=== PATIENT | male | born 1955 | race Caucasian/White ===

== ENCOUNTER → 2023-12-30 09:49 | Outpatient (REF) | payer MEDICARE, BC, SELFPAY ==
[2023-12-30 12:23] LABS: % Basophils 1.3 % (0-2); % Eosinophils 4.2 % (0-6); % Immature Granulocytes 0.3 % (0-0.5); % Lymphocytes 39.9 % (20.5-51.1); % Monocytes 11.5 % (1.7-9.3); % Neutrophils 42.8 % (42.2-75.2); Absolute Basophils 0.1 10^3/uL (0-0.2); Absolute Eosinophils 0.3 10^3/uL (0-0.7); Absolute Lymphocytes 2.7 10^3/uL (1.2-3.4); Absolute Monocytes 0.8 10^3/uL (0.1-0.6); Absolute Neutrophils 2.9 10^3/uL (1.4-6.5); Hematocrit 37.5 % (39.0-52.0); Hemoglobin 12.7 g/dL (13.0-18.0); Mean Corp Hgb Conc. 33.9 g/dL (33.0-37.0); Mean Corpuscular Hgb 32.9 pg (27.0-31.0); Mean Corpuscular Volume 97.2 fL (80.0-94.0); Nucleated Red Blood Cells % 0 % (-); Platelet Count 190 10^3/uL (130-400); Red Blood Cell Count 3.86 10^6/uL (4.70-6.10); Red Cell Dist. Width 15.5 % (11.5-14.5); White Blood Cell Count 6.8 10^3/uL (4.8-10.8)
[2023-12-30 13:07] LABS: ALT (SGPT) 21 U/L (0-50); AST (SGOT) 30 U/L (17-59); Albumin 4.1 g/dl (3.5-5.0); Alkaline Phosphatase 68 U/L (38-126); Blood Urea Nitrogen 17 mg/dl (9-20); Calcium 9.6 mg/dl (8.4-10.2); Carbon Dioxide 32 mmol/L (22-30); Chloride 102 mmol/L (98-107); Glucose 86 mg/dl (70-99); HDL Cholesterol 85 mg/dl; LDL Cholesterol, Calculated 101 mg/dl; Potassium 4.7 mmol/L (3.5-5.1); Sodium 137 mmol/L (135-145); Total Bilirubin 0.7 mg/dl (0.2-1.3); Total Cholesterol 198 mg/dl (50-199); Total Protein 6.7 g/dl (6.3-8.2); Triglyceride 60 mg/dl (10-149); Very Low Density Lipoprotein 12 mg/dl (0-30); eGFR > 60.00
[2023-12-30 13:22] LABS: TSH Reflex To Free T4 0.87 uIU/ml (0.47-4.68)
[2023-12-30 13:58] LABS: Folate > 20.0 ng/ml (2.76-20); Vitamin B12 246 pg/ml (239-931)
== END ==
LOC: HWLAB 09:49
PROVIDERS: ATTENDING PHYSICIAN Family Medicine
DX: E03.9 Hypothyroidism, unspecified (principal); I10 Essential (primary) hypertension; R97.20 Elevated prostate specific antigen [PSA]; E53.8 Deficiency of other specified B group vitamins
CPT/HCPCS: 36415; 80053; 80061; 82607; 82746; 84443; 85025

== ENCOUNTER → 2024-01-15 13:41 | Outpatient (REF) | payer MEDICARE, BC, SELFPAY | LOC: HWRAD 13:41 | PROVIDERS: ATTENDING PHYSICIAN Family Medicine | DX: R91.1 Solitary pulmonary nodule (principal) | CPT/HCPCS: 71250 ==

== ENCOUNTER → 2024-03-08 13:02 | Outpatient (REF) | payer MEDICARE, BC, SELFPAY ==
[2024-03-08 16:28] LABS: TSH Reflex To Free T4 1.41 uIU/ml (0.47-4.68)
== END ==
LOC: HWLAB 13:02
PROVIDERS: ATTENDING PHYSICIAN Family Medicine
DX: E03.9 Hypothyroidism, unspecified (principal); E53.8 Deficiency of other specified B group vitamins
CPT/HCPCS: 36415; 84443

== ENCOUNTER → 2024-03-17 13:06 | Outpatient (REF) | payer MEDICARE, BC, SELFPAY ==
[2024-03-17 16:49] LABS: PSA, Total - Diagnostic 6.23 ng/ml (0.0-4.0)
== END ==
LOC: HWLAB 13:06
PROVIDERS: ATTENDING PHYSICIAN Urology; FAMILY PHYSICIAN Physician Assistant Medical
DX: R97.20 Elevated prostate specific antigen [PSA] (principal); Z80.42 Family history of malignant neoplasm of prostate
CPT/HCPCS: 36415; 84153

== ENCOUNTER → 2024-05-07 09:35 | Outpatient (REF) | payer MEDICARE, BC, SELFPAY ==
[2024-05-07 11:35] LABS: % Basophils 0.6 % (0-2); % Eosinophils 1.7 % (0-6); % Immature Granulocytes 0.3 % (0-0.5); % Lymphocytes 34.4 % (20.5-51.1); % Monocytes 10.1 % (1.7-9.3); % Neutrophils 52.9 % (42.2-75.2); Absolute Eosinophils 0.1 10^3/uL (0-0.7); Absolute Lymphocytes 2.2 10^3/uL (1.2-3.4); Absolute Monocytes 0.6 10^3/uL (0.1-0.6); Absolute Neutrophils 3.4 10^3/uL (1.4-6.5); Hematocrit 40.3 % (39.0-52.0); Hemoglobin 13.3 g/dL (13.0-18.0); Mean Corpuscular Hgb 32.4 pg (27.0-31.0); Mean Corpuscular Volume 98.1 fL (80.0-94.0); Mean Platelet Volume 11.8 fL (7.4-10.4); Nucleated Red Blood Cells % 0 % (-); Platelet Count 262 10^3/uL (130-400); Red Blood Cell Count 4.11 10^6/uL (4.70-6.10); Red Cell Dist. Width 15.7 % (11.5-14.5); White Blood Cell Count 6.4 10^3/uL (4.8-10.8)
[2024-05-07 12:23] LABS: ALT (SGPT) 27 U/L (0-50); AST (SGOT) 39 U/L (17-59); Albumin 4.5 g/dl (3.5-5.0); Alkaline Phosphatase 65 U/L (38-126); Blood Urea Nitrogen 14 mg/dl (9-20); Calcium 9.9 mg/dl (8.4-10.2); Carbon Dioxide 31 mmol/L (22-30); Chloride 103 mmol/L (98-107); Glucose 97 mg/dl (70-99); HDL Cholesterol 92 mg/dl; LDL Cholesterol, Calculated 88 mg/dl; Potassium 5.2 mmol/L (3.5-5.1); Sodium 139 mmol/L (135-145); Total Bilirubin 0.7 mg/dl (0.2-1.3); Total Cholesterol 193 mg/dl (50-199); Total Protein 7.1 g/dl (6.3-8.2); Triglyceride 67 mg/dl (10-149); Very Low Density Lipoprotein 13 mg/dl (0-30); eGFR > 60.00
[2024-05-07 12:46] LABS: TSH Reflex To Free T4 1.16 uIU/ml (0.47-4.68)
[2024-05-07 13:06] LABS: Vitamin B12 369 pg/ml (239-931)
== END ==
LOC: HWLAB 09:35
PROVIDERS: ATTENDING PHYSICIAN Family Medicine; FAMILY PHYSICIAN Physician Assistant Medical
DX: E03.9 Hypothyroidism, unspecified (principal); E53.8 Deficiency of other specified B group vitamins
CPT/HCPCS: 36415; 80053; 80061; 82607; 84443; 85025

== ENCOUNTER → 2024-06-22 12:51 | Outpatient (REF) | payer MEDICARE, BC, SELFPAY | LOC: HWRCS 12:51 | PROVIDERS: ATTENDING PHYSICIAN Physician Assistant Medical | DX: I34.0 Nonrheumatic mitral (valve) insufficiency (principal); I35.0 Nonrheumatic aortic (valve) stenosis | CPT/HCPCS: 93306 ==

== ENCOUNTER → 2024-09-23 12:19 | Outpatient (REF) | payer MEDICARE, BC, SELFPAY ==
[2024-09-23 16:08] LABS: PSA, Total - Diagnostic 8.16 ng/ml (0.0-4.0)
== END ==
LOC: HWLAB 12:19
PROVIDERS: ATTENDING PHYSICIAN Urology; FAMILY PHYSICIAN Physician Assistant Medical
DX: N40.1 Benign prostatic hyperplasia with lower urinary tract symptoms (principal); R97.20 Elevated prostate specific antigen [PSA]; Z80.42 Family history of malignant neoplasm of prostate
CPT/HCPCS: 36415; 84153

== ENCOUNTER → 2024-11-09 10:45 | Outpatient (REF) | payer MEDICARE, BC, SELFPAY ==
[2024-11-09 16:38] LABS: ALT (SGPT) 29 U/L (0-50); AST (SGOT) 38 U/L (17-59); Albumin 4.2 g/dl (3.5-5.0); Alkaline Phosphatase 47 U/L (38-126); Blood Urea Nitrogen 18 mg/dl (9-20); Calcium 9.5 mg/dl (8.4-10.2); Carbon Dioxide 33 mmol/L (22-30); Chloride 101 mmol/L (98-107); Glucose 87 mg/dl (70-99); HDL Cholesterol 88 mg/dl; LDL Cholesterol, Calculated 90 mg/dl; Potassium 4.6 mmol/L (3.5-5.1); Sodium 139 mmol/L (135-145); Total Bilirubin 0.7 mg/dl (0.2-1.3); Total Cholesterol 194 mg/dl (50-199); Total Protein 6.5 g/dl (6.3-8.2); Triglyceride 84 mg/dl (10-149); Very Low Density Lipoprotein 16 mg/dl (0-30); eGFR > 60.00
[2024-11-09 17:08] LABS: TSH Reflex To Free T4 2.12 uIU/ml (0.47-4.68)
== END ==
LOC: HWLAB 10:45
PROVIDERS: ATTENDING PHYSICIAN Physician Assistant Medical
DX: E78.00 Pure hypercholesterolemia, unspecified (principal); I10 Essential (primary) hypertension; E03.9 Hypothyroidism, unspecified
CPT/HCPCS: 36415; 80053; 80061; 84443

== ENCOUNTER → 2025-04-01 11:00 | Outpatient (REF) | payer MEDICARE, BC, SELFPAY ==
[2025-04-01 17:55] LABS: PSA, Total - Diagnostic 8.03 ng/ml (0.0-4.0)
== END ==
LOC: HWLAB 11:00
PROVIDERS: ATTENDING PHYSICIAN Urology; FAMILY PHYSICIAN Physician Assistant Medical
DX: R97.20 Elevated prostate specific antigen [PSA] (principal); Z80.42 Family history of malignant neoplasm of prostate
CPT/HCPCS: 36415; 84153

== ENCOUNTER → 2025-04-12 11:05 | Outpatient (REF) | payer MEDICARE, BC, SELFPAY | LOC: HWRCS 11:05 | PROVIDERS: FAMILY PHYSICIAN Physician Assistant Medical | DX: I35.0 Nonrheumatic aortic (valve) stenosis (principal) | CPT/HCPCS: 93306 ==

== ENCOUNTER → 2025-05-02 09:24 | Outpatient (REF) | payer MEDICARE, BC, SELFPAY ==
[2025-05-02 12:41] LABS: % Basophils 0.8 % (0-2); % Eosinophils 1.6 % (0-6); % Immature Granulocytes 0.3 % (0-0.5); % Lymphocytes 30.1 % (20.5-51.1); % Monocytes 7.6 % (1.7-9.3); % Neutrophils 59.6 % (42.2-75.2); Absolute Basophils 0.1 10^3/uL (0-0.2); Absolute Eosinophils 0.1 10^3/uL (0-0.7); Absolute Lymphocytes 2.4 10^3/uL (1.2-3.4); Absolute Monocytes 0.6 10^3/uL (0.1-0.6); Absolute Neutrophils 4.7 10^3/uL (1.4-6.5); Hemoglobin 12.7 g/dL (13.0-18.0); Mean Corp Hgb Conc. 33.4 g/dL (33.0-37.0); Mean Corpuscular Hgb 33.4 pg (27.0-31.0); Nucleated Red Blood Cells % 0 % (-); Platelet Count 272 10^3/uL (130-400); Red Cell Dist. Width 15.9 % (11.5-14.5); White Blood Cell Count 7.9 10^3/uL (4.8-10.8)
[2025-05-02 13:23] LABS: TSH Reflex To Free T4 0.54 uIU/ml (0.47-4.68)
[2025-05-02 13:36] LABS: ALT (SGPT) 29 U/L (0-50); AST (SGOT) 32 U/L (17-59); Albumin 4.6 g/dl (3.5-5.0); Alkaline Phosphatase 55 U/L (38-126); Blood Urea Nitrogen 12 mg/dl (9-20); Calcium 9.8 mg/dl (8.4-10.2); Carbon Dioxide 28 mmol/L (22-30); Chloride 107 mmol/L (98-107); Glucose 97 mg/dl (70-99); HDL Cholesterol 77 mg/dl; LDL Cholesterol, Calculated 99 mg/dl; Sodium 142 mmol/L (135-145); Total Bilirubin 0.7 mg/dl (0.2-1.3); Total Cholesterol 189 mg/dl (50-199); Triglyceride 69 mg/dl (10-149); Very Low Density Lipoprotein 13 mg/dl (0-30); eGFR > 60.00
[2025-05-02 13:58] LABS: Folate > 20.0 ng/ml (2.76-20); Vitamin B12 336 pg/ml (239-931)
== END ==
LOC: HWLAB 09:24
PROVIDERS: ATTENDING PHYSICIAN Physician Assistant Medical
DX: D64.9 Anemia, unspecified (principal); E53.8 Deficiency of other specified B group vitamins; I10 Essential (primary) hypertension; E78.00 Pure hypercholesterolemia, unspecified; E03.9 Hypothyroidism, unspecified
CPT/HCPCS: 36415; 80053; 80061; 82607; 82746; 84443; 85025

== ENCOUNTER → 2025-06-02 11:15 | Outpatient (REF) | payer MEDICARE, BC, SELFPAY | LOC: RAD 11:15 | PROVIDERS: ATTENDING PHYSICIAN Internal Medicine Cardiovascular Disease; FAMILY PHYSICIAN Physician Assistant Medical | DX: I35.0 Nonrheumatic aortic (valve) stenosis (principal) | CPT/HCPCS: 74174; 75572; Q9967 ==

== ENCOUNTER → 2025-07-04 10:51 | Outpatient (REF) | payer MEDICARE, BC, SELFPAY | LOC: HWRAD 10:51 | PROVIDERS: ATTENDING PHYSICIAN Physician Assistant Medical; REFERRING PHYSICIAN Internal Medicine Clinical Cardiac Electrophysiology | DX: J43.9 Emphysema, unspecified (principal); R91.1 Solitary pulmonary nodule; Z87.891 Personal history of nicotine dependence | CPT/HCPCS: 71250 ==

== ENCOUNTER 2025-08-04 07:24 | Inpatient (IN) | payer MEDICARE, BC, SELFPAY ==
--- NOTE | 2025-07-25 12:44 | HPS.HSE ---
Family Physician
-
Family Physician: ASIYA BLISS PA-C
Chief Complaint
-
RANGEL
PreTAVR evaluation
History of Present Illness
Mr. Tidwell is a very pleasant 69 yom with a past medical history significant for severe aortic stenosis and mixed hyperlipidemia. His most recent echocardiogram from 04/12/2025 is notable for an EF 60-65%, AV P/M 82/56, LEO 0.9, moderate AI,
dense MAC, and moderate MR. His cardiac catheterization from 05/20/2025 demonstrated mild non-obstructive CAD. From a symptomatology standpoint, patient describes RANGEL. Discussed the pathophysiology and treatment options of including SAVR and TAVR.
Reviewed patient with the heart team on 06/24/2025 and the team is agreeable to proceed with TF TAVR utilizing a 23 mm S3. Reviewed the risks of the procedure including stroke, ppm, and vascular injury as discussed in consult with Dr. Lowe.
Confirmed medication list and patient will continue aspirin incliuding 08/04 prior to his 0730 arrival to the [facility]. Allowed for and answered questions to the best of my ability.
Medical History
Past Medical History
Past Medical History: Reports Hypothyroidism, Valvular Disease (aortic stenosis) and Other (diverticulosis, enlarged prostate)
Past Surgical History: Reports Appendectomy, Orthopedic ((R) shoulder replacement, bicep tear repair) and Other (spleen surgery, bowel surgery)
Social History
Tobacco: Former Smoker
Alcohol: Daily (1 glass of wine)
Drug: None
Employment: Retired
Family History
Family History: CAD and Hypertension
Allergies / Home Medications
Allergies reflects when Allergies were last updated in [employer] [facility].
NKDA
Home Medications with original date entered in [employer] [facility]
Align(Probiotic Product) - Tablet Chewable as directed Orally daily
Aspir-81 81 MG Tablet Delayed Release 1 tablet Orally Once a day
Calcium Carbonate 600 MG Tablet NO SIG SUPPLIED Oral
Cialis(Tadalafil) 5 MG Tablet take 1 tablet by oral route every day Oral
Glucosamine 500 MG Capsule 1 capsule with meals Orally every 12 hours
Hyoscyamine Sulfate 0.125 MG Tablet 1 tablet as needed Orally every 8 hrs
KP Olympia-3 Fish Oil(Olympia-3 Fatty Acids) 1200 MG Capsule NO SIG SUPPLIED Oral
Levothyroxine Sodium 150 MCG Tablet take 1 tablet by oral route every day Oral
Omeprazole 40 MG Capsule take 1 capsule by oral route 2 times every day before a meal Oral
Sertraline HCl 50 MG Tablet 1 tablet Orally Once a day
Simvastatin 20 MG Tablet take 1 tablet by oral route every day in the evening Oral
Tamsulosin HCl 0.4 MG Capsule 2 capsule Orally Once a day
Vitamin B12 1000 MCG Tablet 1 tablet Orally Once a day
Vitamin C 500 MG Tablet 1 tablet Orally Once a day
Vitamin E 180 MG (400 UNIT) Capsule 1 capsule Orally Once a day
Allergy/Medication List:
NKDA
Review of Systems
-
History Source: Patient
A 12 point ROS was completed and negative except as noted: Yes
Constitutional: Reports Fatigue
Respiratory: Reports Other (RANGEL)
Physical Exam
Physical Exam
General: Well Developed, Well Nourished, No Apparent Distress and Comfortable
HEENT: NormoCephalic
Respiratory: Clear
Cardiac: S1/S2, Regular Rhythm and Murmur (IV/ BRADNIN)
Breast: Deferred by me
GI: Soft and Non Tender
Rectal: Deferred by Provider
Genito-urinary: Deferred by me
Skin: Warm and Dry
Neuro: Awake, Alert, Oriented and AO x 3
Psych: Calm
Data Reviewed
-
CT Scan: Report Reviewed by me and Discussed with Physician (reviewed with the heart team)
Medical Tests (Nuc Med, Echo, EKG etc): Report Reviewed by me and Discussed with Physician (echocardiogram and cardiac catheterization reviewed with the heart team)
Lab Data: Labs Reviewed by me
Old Records: Reviewed
Impression/Plan
-
IMPRESSION/PLAN:
Aortic stenosis
TF TAVR planned utilizing a 23 mm S3 for 08/04/[address] Dela Cruz and Eduar.
Continue aspirin
hold fish oil until after TAVR
POD#1/#30 echocardiogram
Cardiac rehab consult
Labs
-
Labs:
WBC 6.1 10^3/uL (4.8-10.8) 07/26/25 09:48
RBC 3.30 10^6/uL (4.70-6.10) L 07/26/25 09:48
Hgb 11.0 g/dL (13.0-18.0) L 07/26/25 09:48
Hct 33.1 % (39.0-52.0) L 07/26/25 09:48
Plt Count 249 10^3/uL (130-400) 07/26/25 09:48
Sodium 138 mmol/L (135-145) 07/26/25 09:48
Potassium 4.8 mmol/L (3.5-5.1) 07/26/25 09:48
Chloride 103 mmol/L (98-107) 07/26/25 09:48
Carbon Dioxide 31 mmol/L (22-30) H 07/26/25 09:48
BUN 14 mg/dl (9-20) 07/26/25 09:48
Creatinine 0.6 mg/dL (0.7-1.3) L 07/26/25 09:48
eGFR > 60.00 07/26/25 09:48
Glucose 66 mg/dl (70-99) L 07/26/25 09:48
Calcium 9.6 mg/dl (8.4-10.2) 07/26/25 09:48
Jcp-E-Pwffmwjwqao Pept 460 pg/ml 07/26/25 09:48
Albumin 4.4 g/dl (3.5-5.0) 07/26/25 09:48
[2025-07-26 09:34] VITALS: BMI 25.6
[2025-07-26 10:38] LABS: Hematocrit 33.1 % (39.0-52.0); Hemoglobin 11.0 g/dL (13.0-18.0); Mean Corp Hgb Conc. 33.2 g/dL (33.0-37.0); Mean Corpuscular Volume 100.3 fL (80.0-94.0); Nucleated Red Blood Cells % 0 % (-); Platelet Count 249 10^3/uL (130-400); Red Cell Dist. Width 15.9 % (11.5-14.5)
[2025-07-26 10:50] LABS: Urine Character Clear (Clear)
[2025-07-26 10:59] LABS: ALT (SGPT) 27 U/L (0-50); AST (SGOT) 36 U/L (17-59); Albumin 4.4 g/dl (3.5-5.0); Alkaline Phosphatase 50 U/L (38-126); Blood Urea Nitrogen 14 mg/dl (9-20); Calcium 9.6 mg/dl (8.4-10.2); Carbon Dioxide 31 mmol/L (22-30); Chloride 103 mmol/L (98-107); Estimated Creatinine Clearance 105 ml/min; Glucose 66 mg/dl (70-99); INR 0.99; PT 13.4 Sec (11.4-14.6); Potassium 4.8 mmol/L (3.5-5.1); Sodium 138 mmol/L (135-145); Total Protein 6.6 g/dl (6.3-8.2); eGFR > 60.00
[2025-07-26 12:01] LABS: Glycohemoglobin (HgbA1c) 5.0 % (4.0-5.6)
--- NOTE | 2025-07-26 12:31 | CM ---
spoke to pt in PAT, we discussed pre op TAVR teaching including lifting and driving restrictions. he is prev indep, lives with his in a 1 story home with 3 steps to enter. he denies any dme's. he has the TAVR educ book, soap and in structions.
he is agreeable to a f/u visist form the ct transitional care nurse after dc. plan is for TAVR 08/04, cm role explained and all questions answered
[2025-08-04] VITALS (21 sets, daily range): BP systolic 107–161; BP diastolic 70–101
--- NOTE | 2025-08-04 08:55 | W.CVOR.SURPR ---
CVOR Surgeon Immed Pre Op
-
I have examined this patient prior to performance of the scheduled procedure.
The patient's condition is unchanged from the time of the dictated/written History and
Physical and the patient is able to undergo the scheduled procedure.
TF TAVR
Full Rescue
[2025-08-04] MEDS: ANCEF 10 IV (10:08)
[2025-08-04 11:12] LABS: ACT-LR - POC 252 Seconds (116-155)
[2025-08-04] MEDS: ANCEF IV (11:25)
--- NOTE | 2025-08-04 11:31 | W.PN.CT.SURG ---
CT Surgery Operative Note
-
OPERATIVE REPORT
Preoperative Diagnosis: Severe aortic valve stenosis, symptomatic
Postoperative Diagnosis: Same
Procedure(s) Performed: Left trans femoral TAVR with a 23 mm nominal Villegas TAVR valve
Date of Procedure: 08/04/2025
Comorbidities:
1. Severe aortic stenosis, symptomatic
2. Aortic regurgitation
3. Hypertension
4. Hyperlipidemia
Cardiac Surgeon: Eric Dela Cruz MD, MS and Clau Torres MD, MPH
Electroneurodiagnostic Technologist: Pedro Witt MD
Anesthesia: Conscious Sedation and Local Analgesia
EBL: 100 cc
Products: none
Implant: Villegas 23 Resilia, SN: [id number]
Indication(s) for Procedures: 70-year-old male with symptomatic severe aortic stenosis. CT-TAVR protocol revealed acceptable anatomy for TAVR access and implantation.
Start time: 1035 hrs
Deployment time: 1108 hrs
End time: 1121 hrs
Radiation Dose (mGy): 178
DAP (cm2.Gy): 28.2
Fluoroscopy time (minutes): 14.3
Contrast volume (ml): 122
TAVR gradient (mmHg): 12 mmHg
Heparin Dose: 7000 units
Protamine Dose: 30 mg
Final Valve Positionin/10
LVEPD: 16 mmHG
Findings: Preoperative LVEF was 60-65% and was 60-65% following TAVR without inotropic support. Function was overall normal without regional wall motion abnormalities or dyskinesia. The aortic valve was well seated without detectable PVL and mean
gradient across the new valve was 12 mmHg. Pacer was discontinued, patient returned to sinus while on the laboratory analyst table. There was successful placement of 23 mm Resilia TAVR valve without acute complications.
Access:
1. Device -left SHEET METAL PATTERN CUTTER, perclose x 2
2. Pigtail -right SHEET METAL PATTERN CUTTER [+ 6Fr angioseal]
3. Transvenous Pacer -right femoral vein
Description of Procedure: The patient was taken to the laboratory analyst. Their identity and procedure to be performed were verified and they were positioned supine on the laboratory analyst table. Induction via conscious sedation. The patient was then prepped and
draped from chin to thigh in a sterile fashion. A preoperative time-out was performed with all members of the team present. Arterial and venous access was performed using fluoroscopy and ultrasound guidance with micropuncture and Seldinger
technique. Two perclose devices were used on the device side followed by access to the aorta with a stiff wire to facilitate E-sheath placement. Heparin was given. A stiff straight wire and AL-1 catheter was used to cross the aortic valve. An LVEDP
was measured. The stiff wire was exchanged for an extra stiff coiled tip wire. The valve was prepped and mounted on to the device carrier. An ACT of >250 was achieved. We verified x 3 that the valve was mounted in the correct orientation with the
skirt of the valve directed toward the tip of the device carrier. We advanced the device into the descending thoracic aorta where the valve was them mounted onto the balloon under fluoroscopy. The device was flexed and advanced over the arch into
the root and positioned across the aortic valve. Contrast fluoroscopy was used to visualize the prosthesis across the valve and to guide positioning. A pigtail catheter in the RCC as used as a guide. We aimed to have the bottom of the device marker
at the annular hinge point. The device sheath was pulled back. We performed a quick pre-deployment time out. The pacer was turned on and had capture. Blood pressure fell accordingly, angiography was done to verify the intended final placement and
the valve was deployed with 5 seconds of rapid pacing to nominal volume. The balloon was deflated and the pacer was turned off. We had recovery of vitals. The device carrier was unflexed and positioned back in the descending thoracic aorta. A
transthoracic echocardiogram was performed. The device was removed from the E-Sheath maintaining wire access followed by removal of the E-sheath as we cinched down the perclose devices. There was acceptable hemostasis. The pigtail was withdrawn into
the descending/abdominal and completion aortogram with runoff run-off angiography was performed. There was no stenosis or dissection of bilateral iliofemoral systems. There was acceptable hemostasis of bilateral groins and manual pressure was held
following wire removal. Low dose protamine was administered after checking another ACT.
All instrument, sponge, and needle counts were confirmed to be correct x 2 at the end of the operation. The patient was transferred to the cardiac intensive care unit in stable condition.
I, Dr. Clau Torres, was present, scrubbed for, and performed all critical elements of this procedure.
Clau Torres MD, MPH
Cardiothoracic Surgeon
[facility]
This operative dictation was created using the Variable dictation system. Please excuse any grammatical, typographical, or 'sound alike' errors
--- NOTE | 2025-08-04 11:43 | ITS.CL.TAVR ---
Build Manager - TAVR Report
TAVR PRocedure
Procedure Report:
TRANSCATHETER AORTIC VALVE REPLACEMENT REPORT
Date: 08/04/2025
Referring physician: Moisés Mukherjee M.D.
Preop diagnosis: Severe aortic valve stenosis.
Postop diagnosis: Severe aortic valve stenosis.
Procedure: Transcatheter aortic valve replacement (TAVR) using a #23 Villegas ABIOLA S3 Ultra.
Operators: Pedro Witt DO, Eric Dela Cruz M.D., Clau Torres M.D., Ernst Roca M.D. (PGY-2)
Findings: Severely calcified and stenotic aortic valve.
Anesthesia: Concious sedation was provided by the anesthesia staff.
Estimated blood loss: Negligable.
Complications: None.
Condition: Stable
Procedure:
The patient was brought to the cardiac laboratory courier after consent and was prepped and draped in standard sterile fashion. Conscious sedation was provided by the anesthesia staff. After a 'Time Out,' bilateral common femoral arteries and the right
femoral common vein were access using a modified Seldinger technique with a micropuncture kit under ultrasound guidance. A 6 Gambian sheath was placed in the right femoral vein. Angiography performed through the micropuncture sheath confirmed
satisfactory arterial placement in the right common femoral artery. The micropuncture sheath was replaced with a 6Fr sheath in the right WARRANT CLERK. Angiography through the micropuncture kit confirmed satisfactory arterial placement in the left common
femoral artery. The left WARRANT CLERK was dilated with an 8FR dilator and preclosed with two Perc-Close devices. An 8Fr sheath was placed in the LCFA. A temporary pacing wire was advanced through the right femoral vein and into the right ventricle. The
pacemaker demonstrated good capture and was set to back up. A 5Fr pigtail catheter was advanced through the right femoral sheath and seated in the right coronary cusp. Angiography confirmed co-planar angles.
An AL-1 catheter was advanced through the 8Fr sheath, the J wire was exchanged for an Amplatz Extrastiff wire and the catheter and the 8 Fr sheath was removed. The 14 Fr Villegas E-sheath was inserted over the wire and into the descending aorta.
Heparin 7000 units was given. The ABIOLA S3 was prepared on the back table. Orientation was confirmed by both physicians. The AL-1 catheter was re-advanced through the E-sheath to the level of the ascending aorta. The Extrastiff wire was removed
and a soft tip straight wire was advanced through the AL-1. The straight tip wire was used to cross the aortic valve and the catheter was advanced into the left ventricle. The straight wire was removed and an Amplatz Extrastiff wire with curved
proximal end was advanced through the catheter and into the left ventricle. The wire was seated in the apex and the catheter was removed. ACT was checked and confirmed to be > 250 seconds.
The valve was advanced over the Extrastiff wire and into the descending aorta. The balloon was withdrawn and the valve was mounted on the balloon. The valve was advanced over the aortic arch and into the aortic valve annulus. The pusher device
was withdrawn to allow for balloon expansion. Low volume aortography confirmed good position of the valve. The valve was deployed during rapid ventricular pacing. Echocardiography and aortography confirmed a good result with trace aortic valve
insufficiency and a 12 mmHg mean gradient. The valve deployment system was removed. The Villegas E sheath was then removed and hemostasis obtained with the two perclose sutures. Final angiography demonstrated no evidence of ileofemoral
dissection/perforation and good runoff below the common femoral artery. The pacemaker and the pigtail catheter were removed. The right femoral artery sheath was removed and hemostasis was achieved using a 6 Gambian Angio-Seal. The right femoral
venous sheath was removed and manual pressure was applied with excellent hemostasis. Protamine 30 mg was given.
Radiation
Dose (mGy): 178
DAP (cm2.Gy): 28.2
Fluoroscopy time (minutes): 14.3
TAVR Echo Gradient (mmHg): 12
LV (s/x, mmHg): 133/16
TAVR Cath Gradient (mmHg): Not obtained.
Conclusions:
1. Successful placement of #23 Abiola S3 Ultra Resilia aortic valve via a left transfemoral approach with no acute complications.
Pedro Witt DO, FACC, FACP
Copy to: Moisés Mukherjee M.D., Ramesh Roberts PA-C
--- NOTE | 2025-08-04 12:13 | CM ---
Chart reviewed. Patient is in the OR today. Patient is independent of ADLS, lives with his in a 1 STH, 3 SEBASTIEN, 0 DME. Plan is for the patient to return home with CT Transitional RN. CM to follow
[2025-08-04] MEDS: ANCEF 5 IV (18:02)
--- NOTE | 2025-08-04 19:28 | PTCARENOTE ---
Pt received from recovery area post TAVR. Pt denied any discomfort, awake alert and oriented, neuro assessment at his baseline. Bilateral femoral sites with dry and intact dressings, no sign of bleeding or hematoma. Pt OOB and voiding without
difficulty, walking in halls with RN. Telemetry shows sinus rhythm. Plan to monitor closely with CXR and ECHO on 08/05.
[2025-08-04] MEDS: FLOMAX 0.4 MG PO (19:48)
--- NOTE | 2025-08-04 22:13 | PTCARENOTE ---
Received pt at change of shift OOB in chair. pt ambulating. SR on tele, HR in the 70's. pt denies any CP or SOB at this time. Right groin sites C.D.I. Left groin site intact w/ scant amount of old drainage. No bleeding or hematoma noted at this
time. pt educated on activity restrictions, verbalizes understanding. pt using IS with result of 1000. Encouraged pt to call RN with any questions/concerns. Call mcknight within reach.
[2025-08-04] MEDS: LIPITOR 10 MG PO (22:58)
[2025-08-05] VITALS (7 sets, daily range): BP systolic 125–143; BP diastolic 66–76; PULSE 69; O2SAT 96–98; BMI 24.8
[2025-08-05 04:13] LABS: Hematocrit 30.8 % (39.0-52.0); Hemoglobin 10.6 g/dL (13.0-18.0); Mean Corp Hgb Conc. 34.4 g/dL (33.0-37.0); Mean Corpuscular Volume 97.2 fL (80.0-94.0); Platelet Count 197 10^3/uL (130-400); Red Cell Dist. Width 15.5 % (11.5-14.5)
[2025-08-05 04:29] LABS: Blood Urea Nitrogen 11 mg/dl (9-20); Calcium 9.4 mg/dl (8.4-10.2); Carbon Dioxide 29 mmol/L (22-30); Chloride 104 mmol/L (98-107); Estimated Creatinine Clearance 103 ml/min; Glucose 94 mg/dl (70-99); Potassium 4.2 mmol/L (3.5-5.1); Sodium 135 mmol/L (135-145); eGFR > 60.00
[2025-08-05 05:17] LABS: Hepatitis C Antibody Negative (Negative)
[2025-08-05] MEDS: SYNTHROID 150 MCG PO (06:12)
--- NOTE | 2025-08-05 07:21 | W.PN.CD ---
Today's Communication / Plan
-
Post TAVR echo pending.
Discharge planning.
Impression / Plan
-
Impression/Plan: 70 y/o male with hyperlipidemia, hypothyroidism and severe /moderate AI admitted for elective TAVR.
#/AI
-Chronic, progressive.
-S/P #23 Villegas ABIOLA S3 Resilia TAVR via left common femoral approach.
-Telemetry is unremarkable.
-Access sites are C/D/I.
-Antithrombotic therapy with aspirin 81 mg daily.
-Post procedure echocardiogram pending.
#HLD
-Chronic, stable.
-Continue simvastatin.
#Hypothyroidism
-Chronic, stable.
-Home levothyroxine.
#PPx
-SCD's for DVT/VTE.
-Home PPI.
#Dispo
-IVU status.
-Full code.
-Discharge planning.
Subjective/Interval History:
TAVR yesterday.
Feels well.
DATA:
TAVR, 08/04/2025:
Conclusions:
1. Successful placement of #23 Abiola S3 Ultra Resilia aortic valve via a left transfemoral approach with no acute complications.
Physical Exam
Vital Signs/Labs
Vital Signs
Temp Pulse Resp BP Pulse Ox
37.2 C 100 16 134/73 93
08/05/25 03:24 08/05/25 06:00 08/05/25 03:24 08/05/25 03:24 08/05/25 03:24
08/03/25 08/04/25 08/05/25
11:59 11:59 11:59
Actual Weight 69.6 kg
08/05/25 03:39
08/05/25 03:39
PT 13.4 Sec (11.4-14.6) 08/26/25 09:48
INR 0.99 07/26/25 09:48
07/26/25
09:48
Usd-I-Jdfzakrifhk Pept 460
Physical Exam
Constitutional: No acute distress and Comfortable
EENT: Anicteric and Moist mucous membranes
Cardiovascular: Rhythm & rate is regular, Pedal edema is absent, JVD pressure is normal, Systolic murmur present (1/6 BRANDIN at the LUSB.) and S1S2 is normal
Respiratory: Respiratory effort normal, Lungs clear to auscul., Wheeze Absent, Crackles Absent and Rhonchi Absent
GI: Soft, Distention absent, Flat, Non tender and Normal bowel sounds
Neuro/Psych: AO x 3
Other: Cath Site (Bilateral femoral access sites are C/D/I.)
Data Reviewed
-
Date of Service: August 05, 2025
Medical Decision Making: Reviewed Test Results, Independent Historian Assessment and Test Interpretation
EKG: Tracing Personally Visualized and interpreted and Report Reviewed by me
Echo: Tracing Personally Visualized and interpreted and Report Reviewed by me
X-Ray/CT/US/MRI/NUC/PET: Image Personally Visualized and interpreted and Report Reviewed by me
Medical Tests (PFT, Pathology etc): Image Personally Visualized and interpreted and Report Reviewed by me
Labs: Labs Reviewed by me
Old Records: Reviewed
--- NOTE | 2025-08-05 07:59 | W.PN.CT ---
Today's Communication / Plan
-
-pod #1
-no issues overnight
-nsr 70s-80s overnight. No michael or pauses
-Echo today
-current meds (ASA, Lipitor, Flomax, Protnix)
-possible d/c home
Assessment / Plan
-
- Severe symptomatic aortic valve stenosis- s/p Left trans femoral TAVR with a 23 mm nominal Villegas TAVR valve on 08/04/25, pod #1
- LVEPD: 16 mmHG
- Intraop TTE: LVEF was 60-65% pre and postop, without regional wall motion abnormalities or dyskinesia. The aortic valve was well seated without detectable PVL and mean gradient across the new valve was 12 mmHg.
- Aortic regurgitation
- Hypertension
- Hyperlipidemia
- BPH
- Hypothyroidism
- s/p splenectomy
- R shoulder replacement
- L biceps repair
- Appendectomy
Discussed patient care with: Nursing and Care Team
Subjective
-
Date of Service: August 05, 2025
Objective Data
-
Lab Results
08/05/25 03:39
08/05/25 03:39
PT 13.4 Sec (11.4-14.6) 07/26/25 09:48
INR 0.99 07/26/25 09:48
Vital Signs
Vital Signs
Temp Pulse Resp BP Pulse Ox
98.9 F 77 16 130/76 93
08/05/25 03:24 08/05/25 07:29 08/05/25 03:24 08/05/25 07:29 08/05/25 03:24
CT Intake/Output/Weight
08/04/25 08/05/25 08/05/25
18:59 06:59 18:59
Intake Total 1400 / 1880 480 / 1880
Output Total 950 / 950
Balance 450 / 930 480 / 930
SaO2: 93
Physical Exam
-
General: Awake and AOx3
Cardiovascular: Regular rate & rhythm and Murmur (1/6 systolic @ lsb)
Respiratory: Clear
Incision: Other (groins are cdi, soft, nontender, no hematoma b/l)
Extremities: Other (chronic trace edema of LLE. No edema of RLE. 2+ DPs b/l)
Abdomen: soft, nontender, nondistended, + bowel sounds
Data Reviewed
-
Lab Results: Results Reviewed
Medications: Active Meds Reviewed
Chest X-Ray: Report Reviewed and Image Reviewed
ECG: Report Reviewed and Image Reviewed
--- NOTE | 2025-08-05 08:46 | W.DCSUMMARY ---
Discharge Summary
Discharge Data
Date of Admission: 08/04/25
Date of Discharge: 08/05/25
-
Pending Results: No
Hospital Course
Primary care physician: Ramesh Roberts
Outpatient chassis driver: Moisés Beasley
Inpatient consultants: [facility]
Procedures:
1. TAVR
Primary Diagnosis:
1. Severe aortic valve stenosis
Secondary Diagnoses:
1. Aortic regurgitation
2. Hypertension
3. Hyperlipidemia
4. BPH
5. Hypothyroidism
6. s/p splenectomy
7. R shoulder replacement
8. L biceps repair
9. Appendectomy
HPI: 70-year-old male was electively admitted on 08/25 for TAVR due to severe aortic stenosis
Hospital course: Patient was taken to the operating room and underwent left trans femoral TAVR #23 mm nominal Villegas TAVR valve by Drs. Clau Torres and Pedro Witt. Please see operative note for further details. Patient was stable on arrival to
[employer] recovery and ECG reported sinus bradycardia 51 bpm. Groin sites remained stable overnight. Patient resumed aspirin on postoperative day #1. Morning ECG reported sinus rhythm and chest x-ray without acute pulmonary abnormality. Per
discharge TTE reported normal biventricular size and systolic function with AV mean gradient 12 mmHg. Mild to moderate mitral regurgitation. Labs were stable on the day of discharge including hemoglobin 10.6; platelet 197k; creat 0.6; K+ 4.2.
Patient ambulated independently in halls and deemed stable for discharge to home
Home medication changes:
none
Discharge Plan
-
Patient Disposition: Home (Routine Discharge)
Discharge Diagnosis/Procedures: L TF TAVR #23mm Villegas (08/04/25)
Condition: Good
Diet: Low Fat, Low Cholesterol and 2 Gram Sodium
Activity: As tolerated
Driving Restrictions: No driving for 1 week
Bathing Restrictions: OK to Shower
Others Tests: Please schedule an echocardiogram at 30 days with your chassis driver.
Other Services: Cardiac Rehab
Wound Care: No lotions, powders, or creams to puncture sites
Specialty Instructions: Weigh Daily- Call MD for wt gain/loss 3 lbs overnight/5 lbs in 1 week
Referrals:
CT Transitional Care Nurse [Outside]
Referral Note: The Cardiothoracic Transitional Care Nurse will call you to set up a visit in 1-2 days.
[facility] [Outside]
Referral Note: Cardiac Rehab Orientation appointment is on Friday@ 1:00pm.
The Cardiac Rehab gym is located on the first floor of the [facility].
Ramesh Roberts PA-C [Family Provider]
Moisés Mukherjee MD [Active, Internal Medicine] - 09/02/25 12:00 pm
Referral Note: [address] [facility] [place] [id number]
Prescriptions:
Continued
hyoscyamine sulfate 0.125 mg Tablet, Sublingual
0.25 mg SUBLINGUAL PRN PRN (Reason: throat issues)
cyanocobalamin (vitamin B-12) [Vitamin B-12] 1,000 mcg Tablet
1,000 mcg PO DAILY Qty: 0 0RF
glucosamine sulfate [Glucosamine] 500 mg Tablet
500 mg PO DAILY Qty: 0 0RF
omeprazole 40 mg capsule,delayed release(DR/EC)
40 mg PO DAILY Qty: 0 0RF
aspirin 81 MG tablet,delayed release (DR/EC)
81 mg PO DAILY Qty: 0 0RF
calcium carbonate [Calcium 600] 600 MG tablet
600 mg PO BID Qty: 0 0RF
ascorbic acid (vitamin C) [Vitamin C] 500 MG tablet
500 mg PO DAILY Qty: 0 0RF
simvastatin 20 MG tablet
20 mg PO HS Qty: 0 0RF
levothyroxine 150 MCG tablet
150 mcg PO DAILY Qty: 0 0RF
sertraline 50 mg Tablet
50 mg PO DAILY Qty: 0 0RF
Align Probiotic
1 cap PO DAILY Qty: 0 0RF
tamsulosin 0.4 mg Capsule
0.4 mg PO BID Qty: 0 0RF
tadalafil [Cialis] 5 mg Tablet
5 mg PO DAILY Qty: 0 0RF
omega 0-yft-adx-fish oil 1,000 MG capsule
1,200 mg PO BID Qty: 0 0RF
vitamin E 180 mg/400 unit
1 tab PO DAILY Qty: 0 0RF
Discharge Orders:
Discharge Patient (As Directed); Ordered 08/05/25
Ordered By: Lidia Shaw
Care Plan Goals
Care Plan Goals:
Problem: Readiness for enhanced knowledge related to diagnosis and treatment plan
Goal: Understand your diagnosis and treatment plan needs, including medications if applicable.
Instructions: Know your diagnosis, underlying causes and treatment plan options, including medications if applicable. Consult with your health care team to learn about your diagnosis and treatment plan, including medications if applicable.
Discharge Date and Time
Print Language: TURKISH
[2025-08-05] MEDS: ZOLOFT 50 MG PO (09:46)
[2025-08-05] MEDS: ASPIR LOW (ENTERIC COATED) 81 MG PO (09:46)
[2025-08-05] MEDS: PROTONIX 40 MG PO (09:46)
[2025-08-05] MEDS: FLOMAX 0.4 MG PO (09:46)
--- NOTE | 2025-08-05 10:15 | W.PN.ANS.POP ---
Anesthesia Post Operative
- Anesthesia Post Op Note
Vital Signs Stable-See Nursing Note: Yes
Airway Patent: Yes
Adequate Pain Control: Yes
Change in Mental Status: No
Current Postoperative Nausea & Vomiting: No
Anesthesia Complications: No
General Anesthetic Recall: No
Unplanned Admission: No
Post Op Hydration Adequate: Yes
== END 2025-08-05 18:05 | disposition home or self-care (01) | DRG 267 ==
LOC: IVU 07:24
PROVIDERS: Nurse Practitioner; ADMITTING PHYSICIAN Thoracic Surgery (Cardiothoracic Vascular Surgery); ATTENDING PHYSICIAN Student in an Organized Health Care Education/Training Program; CONSULT PHYSICIAN Internal Medicine Cardiovascular Disease; FAMILY PHYSICIAN Physician Assistant Medical
PROC: 02RF38Z Replacement of Aortic Valve with Zooplastic Tissue, Percutaneous Approach (ICD-10-PCS; 2025-08-04)
DX: I35.2 Nonrheumatic aortic (valve) stenosis with insufficiency (principal); Z00.6 Encounter for examination for normal comparison and control in clinical research program; E78.2 Mixed hyperlipidemia; I25.10 Atherosclerotic heart disease of native coronary artery without angina pectoris; E03.9 Hypothyroidism, unspecified; N40.0 Benign prostatic hyperplasia without lower urinary tract symptoms; R00.1 Bradycardia, unspecified; I10 Essential (primary) hypertension
CPT/HCPCS: 33361; 36415; 71045; 71046; 80048; 80053; 81003; 82248; 83036; 83880; 85025; 85027; 85347; 85610; 86803; 86850; 86900; 86901; 86920; 87070; 93005; 93308; 93321; 93325; C1760; C1769; C1894; Q9967

== ENCOUNTER 2025-09-27 11:33 | Outpatient (RCR) | payer MEDICARE, BC, SELFPAY | END 2025-09-29 12:35 | disposition home or self-care (01) | LOC: CRHB 11:33 | PROVIDERS: ATTENDING PHYSICIAN Internal Medicine Clinical Cardiac Electrophysiology; FAMILY PHYSICIAN Physician Assistant Medical | DX: Z95.4 Presence of other heart-valve replacement (principal) | CPT/HCPCS: G0422; G0423 ==

== ENCOUNTER → 2025-11-16 09:38 | Outpatient (REF) | payer MEDICARE, BC, SELFPAY ==
[2025-11-16 10:20] LABS: Hematocrit 34.6 % (39.0-52.0); Hemoglobin 11.7 g/dL (13.0-18.0); Mean Corp Hgb Conc. 33.8 g/dL (33.0-37.0); Mean Corpuscular Volume 95.3 fL (80.0-94.0); Nucleated Red Blood Cells % 0 % (-); Platelet Count 263 10^3/uL (130-400); Red Cell Dist. Width 16.1 % (11.5-14.5)
[2025-11-16 11:02] LABS: ALT (SGPT) 26 U/L (0-50); AST (SGOT) 37 U/L (17-59); Albumin 4.1 g/dl (3.5-5.0); Alkaline Phosphatase 59 U/L (38-126); Blood Urea Nitrogen 14 mg/dl (9-20); Calcium 9.4 mg/dl (8.4-10.2); Carbon Dioxide 30 mmol/L (22-30); Chloride 103 mmol/L (98-107); Glucose 97 mg/dl (70-99); HDL Cholesterol 84 mg/dl; Iron 123 ug/dl (49-181); LDL Cholesterol, Calculated 87 mg/dl; Potassium 4.6 mmol/L (3.5-5.1); Sodium 137 mmol/L (135-145); Total Protein 6.7 g/dl (6.3-8.2); Very Low Density Lipoprotein 18 mg/dl (0-30); eGFR > 60.00
[2025-11-16 11:12] LABS: Total Iron Binding Capacity 296 ug/dl (261-462)
[2025-11-16 16:27] LABS: Ferritin 68.9 ng/ml (17.9-464.0)
[2025-11-16 16:58] LABS: Folate 19.4 ng/ml (2.76-20); Vitamin B12 321 pg/ml (239-931)
== END ==
LOC: REG 09:38
PROVIDERS: ATTENDING PHYSICIAN Physician Assistant Medical
DX: I35.0 Nonrheumatic aortic (valve) stenosis (principal); I34.0 Nonrheumatic mitral (valve) insufficiency; I10 Essential (primary) hypertension; E78.00 Pure hypercholesterolemia, unspecified; I70.0 Atherosclerosis of aorta; F32.2 Major depressive disorder, single episode, severe without psychotic features; E03.9 Hypothyroidism, unspecified; D64.9 Anemia, unspecified; Z90.81 Acquired absence of spleen; E53.8 Deficiency of other specified B group vitamins
CPT/HCPCS: 36415; 80053; 80061; 82607; 82728; 82746; 83540; 83550; 84443; 85025